=== PATIENT | male | born 1965 | race Two or more races ===

== ENCOUNTER 2017-02-11 11:16 | Emergency (ER) | payer OTHER ==
--- NOTE | 2017-02-26 15:27 | ER ---
ADMIT: 02/11/2017 RM/LOC: ER [facility] MR#: [id number] [address] [id number] JASPER SIERRA [address] [place] [address] Emergency Room Report SEX: M AGE: 51 : 1965 DATE: 02/11/2017 ADDENDUM: CHIEF COMPLAINT: Left shoulder pain. HISTORY OF PRESENT ILLNESS: This is a 51-year-old, who was lifting a box at work. He said it caused him extreme pain. He did have a similar episode a couple weeks ago, but it was not as painful and he was able to go on with his day. Today, he said it was so painful that he was not able to lift afterwards. No x-rays done due to no trauma to the shoulder. I told him he could have tore part of his rotator cuff. I told him to do ice, ibuprofen, and Tylenol for pain. Follow up with primary care physician next week if no improvement but he may need an MRI to further investigate. CLINICAL IMPRESSION: Left shoulder sprain. DISPOSITION: I sent him home with a sling. Ice, Motrin, Tylenol, and following up next week if no improvement. NEO Greenberg / Pedrito Smith MD / himal JOB #: [id number] CC: Pedrito Smith MD, Attending Physician UNKNOWN, Family Physician
== END 2017-02-11 11:45 | disposition home or self-care (01) ==
LOC: ER 11:16
DX: S43.402A Unspecified sprain of left shoulder joint, initial encounter (principal); I10 Essential (primary) hypertension; E11.9 Type 2 diabetes mellitus without complications; Z86.718 Personal history of other venous thrombosis and embolism; Z79.01 Long term (current) use of anticoagulants; Z79.84 Long term (current) use of oral hypoglycemic drugs; X50.9XXA Other and unspecified overexertion or strenuous movements or postures, initial encounter; Y99.0 Civilian activity done for income or pay